=== PATIENT | female | born 1995 | race African-American/Black ===

== ENCOUNTER 2017-09-17 09:39 | Emergency (ER) | payer OTHER ==
[~2017-09-17] VITALS: Ht 165.1 cm; Wt 54.4 kg
[2017-09-17] MEDS ORDERED: ALBUTEROL2.5 MG/31 INH (09:52)
[2017-09-17] MEDS ORDERED: TESSALON PERLE100 MG PO (09:52)
[2017-09-17] MEDS ORDERED: ZOFRAN ODT4 MG SUBLING (10:09)
[2017-09-17] MEDS ORDERED: PREDNISONE 20 M20 M1 PO (10:09)
[2017-09-17] MEDS ORDERED: ZPAK PO (10:09)
[2017-09-17 10:22] VITALS: BP 123/89
== END 2017-09-17 10:23 | disposition home or self-care (01) ==
LOC: M.ERS 09:39
DX: J06.9 Acute upper respiratory infection, unspecified (principal); F17.210 Nicotine dependence, cigarettes, uncomplicated; Z88.8 Allergy status to other drugs, medicaments and biological substances